=== PATIENT | male | born 1955 | race Caucasian/White ===

== ENCOUNTER → 2025-07-26 08:05 | Outpatient (REF) | payer BC, SELFPAY | LOC: HWRAD 08:05 | PROVIDERS: ATTENDING PHYSICIAN Internal Medicine Cardiovascular Disease; FAMILY PHYSICIAN Family Medicine | DX: I10 Essential (primary) hypertension (principal); E78.5 Hyperlipidemia, unspecified; I77.9 Disorder of arteries and arterioles, unspecified; Z82.49 Family history of ischemic heart disease and other diseases of the circulatory system | CPT/HCPCS: 75571 ==

== ENCOUNTER 2025-10-14 12:14 | Day surgery (SDC) | payer BC, SELFPAY ==
[2025-10-14] VITALS (13 sets, daily range): BP systolic 124–147; BP diastolic 61–89; BMI 29.8
--- NOTE | 2025-10-14 09:19 | ITS.CL.CATH ---
Chore Worker - Catheterization
Cardiac Catheterization
Procedure Report:
LEFT HEART CATHETERIZATION
Date of Procedure: October 14, 2024
Referring: Zoran Newsome MD
PROCEDURES:
1. Left heart catheterization, coronary angiogram.
2. Moderate sedation.
INDICATION: Significantly elevated calcium score with PAD history, and family history of premature coronary artery disease being referred for left heart catheterization to rule out any concerns for left main or proximal LAD disease
ACCESS: Right radial artery, 6Fr. sheath, under US guidance.
HEMODYNAMICS : (mmHg)
AO (s/d) : 120/59
LVEDP : 10
No significant gradient across the aortic valve to suggest aortic stenosis.
CORONARY FINDINGS: Calcified coronary arteries
Dominance: Right
Left Main Trunk (LMT): Large caliber vessel that gives rise to the LAD and LCx branches. There is mild diffuse atherosclerotic plaque
Left Anterior Descending Artery (LAD): Large caliber vessel that gives off 2 major diagonal branches as it courses along the anterior inter-ventricular groove before wrapping around the cardiac apex. There is mild diffuse atherosclerotic plaque
Left Circumflex Artery (LCx): Large caliber vessel that gives off 2 major obtuse marginal (OM) branches as it courses along the atrio-ventricular (AV) groove. There is mild diffuse atherosclerotic plaque.
Right Coronary Artery (RCA): Large caliber dominant vessel that gives rise to the posterior descending artery (RPDA) and postero-lateral ventricular (RPLV) branches distally. Tandem lesions with moderate atherosclerotic plaque in the proximal to
distal RCA of 40 to 50%. KT-3 flow into the distal vessels. Ostial RPDA has 50% stenosis
SEDATION: 27 minutes of procedural sedation was utilized. IV Midazolam and IV Fentanyl were administered. An independent medical services assistant was present to assist with and help manage the patient's level of consciousness and physiologic status.
RADIATION SUMMARY: Fluoro Time (min): 2.0, Dose (mGy): 361.21, DAP (Gy.cm2) : 25.9
Closure Device: There were no immediate intra-procedural complications. The sheath was pulled in the laborer steel handling and a vascular-band applied to the right wrist for radial artery hemostasis using the patent hemostasis technique.
CONCLUSIONS
1. Calcified coronary arteries. Mild to moderate coronary artery disease.
2. No obstructive coronary artery disease.
3. Normal LVEDP
RECOMMENDATIONS
1. Wean radial band per protocol. Monitor right hand perfusion and for bleeding from the radial site following removal of the vascular-band following trans-radial access.
2. Continue aggressive medical therapy and risk factor modification for secondary CAD prevention.
3. Hydrate with normal saline to mitigate the risk of contrast-induced acute kidney injury.
4. Follow-up with Dr. Zoran Newsome.
Radha Chamberlain MD, [facility], [facility]
Copy to: Zoran Newsome MD and Kevin Jennings MD
[2025-10-14] MEDS: LOW STRENGTH ASPIRIN 324 MG PO (13:06)
[2025-10-14] MEDS: NSS 283 ML IV (13:10)
[2025-10-14] MEDS: NSS 1000 IV (15:27)
== END 2025-10-14 18:00 | disposition home or self-care (01) ==
LOC: CATH 12:14
PROVIDERS: ATTENDING PHYSICIAN Internal Medicine Interventional Cardiology; FAMILY PHYSICIAN Family Medicine; OTHER PHYSICIAN Internal Medicine Cardiovascular Disease
DX: I25.10 Atherosclerotic heart disease of native coronary artery without angina pectoris (principal); I25.84 Coronary atherosclerosis due to calcified coronary lesion; I10 Essential (primary) hypertension; Z79.82 Long term (current) use of aspirin; Z79.899 Other long term (current) drug therapy
CPT/HCPCS: 99152; 99153; 93458; C1769; C1894; Q9967